=== PATIENT | female | born 1950 | race Caucasian/White ===

== ENCOUNTER → 2023-05-28 12:40 | Outpatient (BNVA) | payer MEDICARE, SELFPAY | PROVIDERS: PCP Nurse Practitioner; Referring Provider Nurse Practitioner; Visit Provider Internal Medicine Pulmonary Disease | DX: F17.210 Nicotine dependence, cigarettes, uncomplicated (principal); R91.8 Other nonspecific abnormal finding of lung field; J43.2 Centrilobular emphysema | CPT/HCPCS: 99204 ==

== ENCOUNTER 2023-06-03 07:51 | Outpatient (CLI) | payer MEDICARE, SELFPAY ==
--- NOTE | 2023-06-03 08:00 | CT_ITS ---
WS: [id number] CT CHEST TECHNIQUE: Noncontrast CT of the chest with coronal and sagittal reformatted images. CLINICAL INFORMATION: Mass of left lung COMPARISON: None. DLP: [facility] use at least one of these dose optimization techniques: automated e xposure control; mA and/or kV adjustment per patient size (includes targeted exams where dose is matc hed to clinical indication); or iterative reconstruction. FINDINGS: Suspicious spiculated mass outer RIGHT breast measuring 2.3 x 2.8 cm. Recommend further evaluation wi diagnostic mammography and ultrasound. No mammogram comparisons. Neoplasm not excluded. LEFT upper lobe irregular mass compatible with neoplasm measuring approximately 3.5 x 3.1 cm. No axil joel lymphadenopathy. Enlarged heterogeneous thyroid. Normal caliber thoracic aorta. Aortic calcifica tion. Coronary calcification. No mediastinal lymphadenopathy. Cholecystectomy. Adrenal glands are normal. RIGHT upper pole renal cyst measuring 2.6 cm. Normal GE j unction. Dense calcification in the upper abdominal aorta.Partially visualized lobulated spleen indet erminate on this noncontrast study. IMPRESSION: 1. Suspicious spiculated RIGHT outer breast mass measuring 2.3 x 2.8 cm. Recommend further evaluatio n with RIGHT diagnostic mammography and ultrasound. No comparisons. Neoplasm not excluded. 2. Heterogeneous enlarged thyroid. Recommend further evaluation with thyroid ultrasound. 3. Spiculated irregular mass LEFT upper lobe suspicious for neoplasm measuring 3.1 x 3.5 cm. 4. No mediastinal or axillary lymphadenopathy. 5. Aortic calcification. Coronary calcification. 6. Partially visualized lobulated spleen indeterminate on this noncontrast study. Recommend contrast -enhanced CT abdomen pelvis.
== END 2023-06-03 07:52 | disposition home or self-care (01) ==
LOC: RAD 07:52
PROVIDERS: PCP Nurse Practitioner; Visit Provider Internal Medicine Pulmonary Disease
DX: R91.8 Other nonspecific abnormal finding of lung field (principal); N63.10 Unspecified lump in the right breast, unspecified quadrant
CPT/HCPCS: 71250

== ENCOUNTER → 2023-06-04 08:56 | Outpatient (BNVA) | payer MEDICARE, SELFPAY | PROVIDERS: PCP Nurse Practitioner; Visit Provider Internal Medicine Pulmonary Disease | DX: R91.8 Other nonspecific abnormal finding of lung field (principal); E11.9 Type 2 diabetes mellitus without complications; E04.9 Nontoxic goiter, unspecified | CPT/HCPCS: 80053; 80061; 82043; 82607; 83036; 84443; 85025; 86800 ==

== ENCOUNTER 2023-06-10 05:43 | Day surgery (SDC) | payer MEDICARE, SELFPAY ==
[2023-06-10] VITALS (13 sets, daily range): BP systolic 127–156; BP diastolic 52–91; PULSE 73–85; RESP 14–23; TEMP 36.3–36.6; O2SAT 88–98; BMI 35.2
[2023-06-10] MEDS: sodium chloride 0.9% 1,000 ML 30 ML IV (06:18)
[2023-06-10 06:23] LABS: Glucose Point of Care 128 mg/dL (70-110)
--- NOTE | 2023-06-10 06:43 | ANES.PREANE2 ---
Pre-Anesthetic Assessment Height/Weight: Height 1.7 m Weight 102.058 kg Temp Pulse Resp BP Pulse Ox O2 Del Method 97.4 F L 73 20 H 156/90 96 Room Air 06/10/23 06:05 06/10/23 06:05 06/10/23 06:05 06/10/23 06:05 06/10/23 06:05 06/10/23 06:05 Operation Date: 06/10/23 07:00 Proposed Procedures p ION, EBUS, 06216, 43090, 03416, 16112, 31866, 05720, 89042, 56947, 69431, 07144, 34241, 67091, 25687, R91.8(Not Applicable) - Izaiah Love MD s Ebus(Not Applicable) - Izaiah HindsrMD Familial anesthetic complications: None Was Beta Justine taken within 24 hours: N/A Was Clonidine taken within 24 hours: N/A Last intake: Intake Last Liquid Date 06/09/23 Last Liquid Time 22:00 Last Solid Date 06/09/23 Last Solid Time 19:00 Social Tobacco and No alcohol encouaged smoking cessation and f/u w/ PCP for further guidance Exam alert, oriented x 3, clear to auscultation bilaterally (coarse breath sounds b/l) and regular rate & rhythm Airway Mallampati: Class III Dentition: false Pulmonary Chronic Obstructive Pulmonary Disease CV/HEM Hypertension GI Gastroesophageal Reflux Disease Metabolic Diabetes Mellitus and Hyperlipidemia Anesthetic Plan ASA status: 3 Anesthesia: General Risk of > 500 ml blood loss (7ml/kg in children): No Medications/Allergies Home Medications Medication Instructions Recorded Confirmed Last Taken Type albuterol sulfate 90 mcg/actuation 2 puff inhalation Q6H PRN 04/08/23 06/10/23 06/10/23 History aerosol inhaler Shortness Of Breath Or Wheezing amlodipine 10 mg tablet 10 mg PO DAILY 04/08/23 06/10/23 06/09/23 History aspirin 81 mg tablet,delayed 81 mg PO DAILY 04/08/23 06/06/23 06/06/23 History release (Adult Aspirin Regimen) atorvastatin 40 mg tablet 40 mg PO DAILY 04/08/23 06/10/23 06/09/23 History fluticasone 500 mcg-salmeterol 50 1 inh inhalation BID 04/08/23 06/10/23 06/10/23 History mcg/dose blistr powdr for inhalation (Wixela Inhub) ipratropium 0.5 mg-albuterol 3 mg 3 ml inhalation Q4H PRN Shortness 04/08/23 06/10/23 06/10/23 History (2.5 mg base)/3 mL nebulization Of Breath Or Wheezing soln lorazepam 1 mg tablet 1 mg PO DAILY 04/08/23 06/10/23 06/10/23 History losartan 100 mg tablet 100 mg PO DAILY 04/08/23 06/10/23 06/09/23 History metformin 750 mg tablet,extended 750 mg PO DAILY 04/08/23 06/10/23 06/08/23 History release 24 hr montelukast 10 mg tablet 10 mg PO DAILY 04/08/23 06/10/23 06/09/23 History omeprazole 40 mg capsule,delayed 40 mg PO DAILY 04/08/23 06/10/23 06/09/23 History release paroxetine HCl 40 mg tablet 40 mg PO DAILY 04/08/23 06/10/23 06/09/23 History furosemide 20 mg tablet 20 mg PO DAILY PRN Edema 05/28/23 06/10/23 06/09/23 History tiotropium bromide 18 mcg capsule 1 cap inhalation DAILY #60 05/28/23 06/10/23 06/10/23 Rx with inhalation device (Spiriva inhalations with HandiHaler) Allergies Allergy/AdvReac Type Severity Reaction Status Date / Time No Known Allergies Allergy Verified 05/28/23 13:36 Current Medications Generic Name Dose Route Start Last Admin Trade Name Freq PRN Reason Stop Dose Admin Sodium Chloride 1,000 mls @ 30 mls/hr 06/10/23 06:00 06/10/23 06:18 Sodium Chloride 0.9% IV 06/11/23 05:59 30 mls/hr .Q24H FLAVIO Administration PFSH Anesthesia Medical History (Updated 05/31/23 @ 19:03 by Izaiah Love MD) Cigarette smoker Mild acid reflux Mass of left lung 3.2x2.5cm upper lobe Environmental and seasonal allergies Anxiety with depression Essential hypertension Controlled type 2 diabetes mellitus COPD (chronic obstructive pulmonary disease) with emphysema Surgical History History of colonoscopy with polypectomy 2018 History of tonsillectomy History of cholecystectomy Open History of bladder surgery suspension History of cataract surgery both eyes History of hysterectomy with bilateral oophorectomy Due to uterine cancer with radiation vaginal 2016 History of carpal tunnel surgery both wrist Family History Other Cancer Diabetes Heart disease Hypertension Stroke Denies family history of Migraines Social History Smoking and tobacco/nicotine status: light tobacco/nicotine user cigarettes Packs smoked per day: 1.5 Years cigarettes smoked: 56 [ Other cigarette details: Started at 19] Second hand smoke exposure: No Alcohol intake: unknown Substance/Drug Use: unknown Adopted: No Caregiver/support person: No Lives independently: Yes Household members: family Housing: House Marital status: / Number of children: 1 service: No Current occupational status: retired Current occupational exposures/hazards: No Pets and animals: Yes Pets & animals: cat(s) and dog(s) Do you think of yourself as: Straight/Heterosexual Current gender identity: Female Data Anesthesia Cardiac Studies: No Data to Display
--- NOTE | 2023-06-10 06:55 | SC_ITS ---
WS: [id number] INTRAOPERATIVE TECHNIQUE: 3 Spot fluoroscopic images for intraoperative purposes. FLUOROSCOPY TIME: 51.2 seconds CLINICAL INFORMATION: ion FINDINGS: No visualized pneumothorax in the partially visualized LEFT lung. IMPRESSION: Images obtained for intraoperative purposes.
--- NOTE | 2023-06-10 07:14 | W.PM.OPSUD ---
Surgery/Procedure H&P Update DATE OF PROCEDURE: June 10, 2023 DATE H&P PERFORMED: 05/28/23 H&P UPDATE INFORMATION: I have reviewed H&P completed within last 30 days, I have examined patient prior to procedure and No changes to prior documentation PREOP DIAGNOSIS: suspected malignancy PRIMARY INDICATION FOR PROCEDURE: LEFT upper lobe irregular mass compatible with neoplasm measuring approximately 3.5 x 3.1 cm. PLANNED PROCEDURE: Operation Date: 06/10/23 07:00 Proposed Procedures p ION, EBUS, 96253, 11806, 55898, 93053, 71103, 68422, 27404, 35904, 92929, 93069, 61622, 58670, 31469, R91.8(Not Applicable) - Izaiah Love MD s Ebus(Not Applicable) - Izaiah Love MD
[2023-06-10] MEDS: lidocaine 1% INJ 10 mL (per mL) XX (07:46)
[2023-06-10 09:17] LABS: Cyto Order Verification Order Verified
--- NOTE | 2023-06-10 09:25 | XRR_ITS ---
PROCEDURE INFORMATION: Exam: XR Chest Exam date and time: 06/10/2023 8:42 AM Age: 73 years old Clinical indication: Device placement; Other: Post bronch; Prior surgery; Surgery date: Post-operative (0-2 days); Additional info: Post ion TECHNIQUE: Imaging protocol: Radiologic exam of the chest. Views: 1 view. COMPARISON: CT chest ION (PULM ONLY) [id number] 06/03/2023 8:00 AM FINDINGS: Lungs: Unchanged left upper lobe mass. Otherwise, unremarkable. Pleural spaces: Unremarkable. No pleural effusion. No pneumothorax. Heart/Mediastinum: Unremarkable. No cardiomegaly. Diaphragm: Unchanged mild elevation of the right hemidiaphragm. Bones/joints: Unremarkable. XR/XR chest 1V portable [id number] IMPRESSION: 1. No pneumothorax post bronchoscopy. 2. Additional details as above.
--- NOTE | 2023-06-10 09:50 | P.OP_ITS ---
Operative Report Date of procedure: June 10, 2023 Pre-op diagnosis: Suspected malignancy Post-op diagnosis: Suspected malignancy Procedure done: -Dx Bronchoscope w/Washings or airway inspection -Dx Bronchoscope w/BAL -Bronch with computer image guided Navigational Bronchoscopy -Bronchoscopy w/Transbronchial lung biopsy(s), single lobe using forceps -Bronchoscopy w/Transbronchial needle aspiration biopsy(s), tracheal, main stem, and/or lobar bronchus -Bronchoscopy w/ therapeutic aspiration of the tracheobronchial tree (clearance of airway secretions, removal of mucus plugs) -EBUS Sampling > 3 lymph nodes Surgeon: Izaiah Love MD Brief History: Ms. Karely Virgen is a 73-year-old female with past medical history of diabetes, hypertension, cigarette smoker referred by Ms. Erickson for abnormal finding of lung. Patient reported smoking 12-13 cigarettes per day with hx of 1.5 ppd X 56 years. she has history of endometrial cancer in 2015 - s/p hyseterectomy and has 5 sessions of radiation and No lymph node involvement as per pt. Currently she uses Wixela BID and does not use albuterol regularly. She lived in [place] for 65 years - moved to [place] 2020 - and goes to [place] every 6 months as she gets medications from there. she has been having URTI and had a chest x ray in [place] and found to have suspicious lesion; she had CT chest and subsequest PET Ct in mar 2023 - all showed left upper lobe mass 3.2 X 2.5 cm with SUV 14; I have the reports but we do not have any images. She has seen a and rescue fire fighter crash fire in [place] who recommended biopsies-and hence she comes today to discuss about obtaining biopsies. Today she is scheduled for navigational bronchoscopy guided biopsies of left upper lobe mass as well as endobronchial ultrasound-guided biopsy of hilar/mediastinal lymph nodes. Procedure: ROBOTIC BRONCHOSCOPY NOTE: Pre-procedure Verification: Prior to the procedure, the patient's identity was verified by full name, date of and medical record number. The patient's identity was verified on all pertinent medical records. Also prior to the procedure, a History and Physical was performed, and patient medications, allergies and sensitivities were reviewed. The patient's tolerance of previous anesthesia was reviewed. The risks and benefits of the procedure and the sedation options and risks were discussed with the patient. All questions were answered and informed consent was obtained. Planning: Using the Planpoint planning software, this patient?s preoperative CT was loaded onto the system and then target and pathway mapping was performed. This was all done prior to the start of the procedure and appropriate plan verified prior to induction. Anesthesia: General anesthesia was used. Please see anesthesiology documentation for full details. A modified LNVP/[place] Protocol was used for robotic bronchoscopy with rapid Intubation, recruitment maneuvers, Tidal Volume around 8-10mL/Kg [place] Body Weight, and PEEP 10-15 as feasible. Time-Out: Prior to the start of the procedure, the patient's identification, proposed procedure, accurate signed consent, correctly labeled images and record s, and need for prophylactic antibiotics were verified by the physician, the nurse, the anesthesiologist and the it solutions sales consultant in the procedure room. Procedural Details: After obtaining informed consent, The procedure was accomplished without difficulty. The patient tolerated the procedure well. Patient preparation: Patient was placed under general anesthesia. An 8.5 ETT was placed for bronchoscopy. The larynx and vocal cords were not visualized. The trachea was anatomically normal The right sided airway was anatomically normal without endobronchial lesions. thin slightly mucoid appearing secretions. The left sided airway was anatomically normal without endobronchial lesions. thin slightly mucoid appearing secretions. Therapeutic aspiration of the airways, initial encounter, was performed at the left bronchial tree. The therapeutic bronchoscope was then removed. We communicated with the anesthesia team to ensure proper ventilator settings for optimal peripheral bronchoscopy. FIRST LOBE: The Ion Shape Sensing Robotic Assisted Bronchoscope was brought into the field and the process of registration was carried out. The guide catheter was used for peripheral navigational bronchoscopy using the planned pathway into the left upper lobe apical segment mass and was able to be wedged peripherally at a distance of 8 mm away from the target. We locked the catheter position in, and removed the vision probe. We introduced the radial EBUS probe and obtained an good concentric signal [id number] image location relative to the lesion in the same lobe. We confirmed our location with a fluoroscopic C-arm. We then removed the R-EBUS and introduced the biopsy tools starting with a 21 G ION bronchoscopic peripheral needle for Transbronchial Needle Aspirations (TBNA). The first pass was not sent for Rapid On Site Evaluation (PEPE) as we do not have onsite pathology. We continued more biopsies in a cloud format. Transbronchial biopsies of left upper lobe apical segment mass were made using forceps. Transbronchial biopsy technique was selected because the sampling site was not visible endoscopically. The sampling device penetrated the full thickness of the bronchial wall to obtain the biopsy of lung tissue. 6 biopsy passes were performed, and the same number of biopsy samples were obtained. Finally, we used a 20 cc syringe filled with normal saline connected to the proximal portion of the ION catheter and slowly injected and aspirated the contents for a bronchial alveolar lavage of the left upper lobe. The return was cloudy and blood tinged 13 cc . At this point and after confirming the absence of bleeding, we removed the channel. Minimal blood residue was cleared from the airway and the peripheral navigation portion of the procedure was concluded. Empiric cold saline was instilled through the catheter and tamponade held for 1-5 minutes. Next, we turned our attention to linear EBUS staging. An EBUS exam was performed: - Stations 11 R, station 7, station 11 L were enlarged > 5mm and sampled. - Stations 10L, 4L, 10 R, and were also scanned but no obvious lymph nodes were identified and thus did not meet criteria for sampling. Level 11R station was identified with the EBUS scope at the RBI/R hilum and 3 passes were made using a 21G Olympus TBNA needle. Level 7 station was identified with the EBUS scope at the medial LMSB/RMSB and 4 passes were made using a 21 G Olympus TBNA needle. Level 11L station was identified with the EBUS scope at the LLL/L hilum and 3 passes were made using a 21G Olympus TBNA needle. Rapid onsite path evaluation (PEPE) was not utilized for this case. Following completion of all diagnostic and therapeutic procedures, hemostasis was verified. The scope was removed and procedure concluded. Samples: A. Left upper lobe mass 1. Total of 6 passes were made using needle aspiration ; we do not have onsite pathology and so all the material was placed in formalin for histopathology 2. Targeting the same area 6 passes were made using forceps ; we do not have onsite pathology and so all the material was placed in formalin for histopathology 3. Bronchoscope was wedged at the entrance of the apical segment of left upper lobe, 20 mL of saline was instilled and returned 13 mL of bronchoalveolar lavage . The fluid was mixed with blood and specks of tissue. Samples for cell count, cytology, cultures B. EBUS guided Fine-needle aspiration biopsies were taken from Stations 11 R, station 7, 11 L 5. Total of 3 passes were made using needle aspiration from station 11 R; all the material was placed in formalin and sent for histopathology 6. Total of 3 passes were made using needle aspiration from station 7; all the material was placed in formalin and sent for histopathology 7. Total of 3 passes were made using needle aspiration from station 11 L; all the material was placed in formalin and sent for histopathology Complications: None.The patient was extubated and brought to the PACU in stable condition. Postprocedure chest x-ray: There is no evidence of pneumothorax Disposition: Patient can be discharged home in stable condition. Pt, and family are aware that I am going to call them to update final biopsy results once available.
--- NOTE | 2023-06-10 10:35 | ANE.PACU2 ---
Inpatient post-anesthesia follow up: Airway intact: Yes Vital signs: Temperature 97.7 F Pulse Rate 73 Respiratory Rate 16 Blood Pressure 135/61 Pulse Oximetry 92 Oxygen Delivery Me thod Room Air Oxygen Flow Rate 2 Fraction of Inspir ed Oxygen Hydration adequate: Yes Nausea and vomiting: No Pain level: 1 Mental status: Baseline
[2023-06-14 10:35] LABS: PD-L1 (Clone 22C3) by IHC BBPL See Report
== END 2023-06-10 10:34 | disposition home or self-care (01) ==
PROVIDERS: PCP Nurse Practitioner; Visit Provider Internal Medicine Pulmonary Disease
PROC: 0BJ08ZZ Inspection of Tracheobronchial Tree, Via Natural or Artificial Opening Endoscopic (ICD-10-PCS; CPT 31622; principal; 2023-06-10 07:00)
PROC: BB4BZZZ Ultrasonography of Pleura (ICD-10-PCS; 2023-06-10 07:00)
DX: C34.12 Malignant neoplasm of upper lobe, left bronchus or lung (principal); J44.9 Chronic obstructive pulmonary disease, unspecified; I10 Essential (primary) hypertension; K21.9 Gastro-esophageal reflux disease without esophagitis; E11.9 Type 2 diabetes mellitus without complications; E78.5 Hyperlipidemia, unspecified; Z79.82 Long term (current) use of aspirin; F17.210 Nicotine dependence, cigarettes, uncomplicated
CPT/HCPCS: 31624; 31627; 31628; 31629; 31653; 36416; 71045; 76000; 82962; 87015; 87070; 87102; 87116; 87205; 87206; 87801; 88112; 88305; 88341; 88342; 89050; J0360; J1100; J2250; J2405; J2704; J2710; J3010; J3490; J7030

== ENCOUNTER 2023-06-13 06:53 | Outpatient (CLI) | payer MEDICARE, SELFPAY ==
[2023-06-13 07:38] VITALS: PULSE 83; RESP 18; O2SAT 95
[2023-06-13] MEDS: albuterol 2.5 mg/3 mL Neb INHALATION (07:38)
[2023-06-13 07:43] VITALS: PULSE 78
== END 2023-06-13 06:54 | disposition home or self-care (01) ==
LOC: RT 06:54
PROVIDERS: PCP Nurse Practitioner; Visit Provider Internal Medicine Pulmonary Disease
DX: F17.210 Nicotine dependence, cigarettes, uncomplicated (principal)
CPT/HCPCS: 94060; 94618; 94726; 94729

== ENCOUNTER 2023-06-18 14:07 | Oncology outpatient (recurring) (ONCR) | payer MEDICARE, SELFPAY ==
--- NOTE | 2023-06-19 08:09 | N.ONRAD NP_ITS ---
Radiation Oncology New Patient Visit Patient: Karely Virgen MR#: [id number] : 1950 Age: 73 Sex: Female Dictated by: Ankush Morin M.D. Date of Service: 06/18/2023 Referring Physician(s) : Herson Frost M.D. Diagnosis: C34.12 - malignant neoplasm of upper lobe, left bronchus or lung, Diagnosed 06/10/2023 (active). Radiotherapy to date: Summary No prior radiation therapy. 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 She has incidentally noted new diagnosis of clinical st II(T2 N0 M0) breast carcinoma of the central right breast noted on CT from 06/03/2023. In January 2023 she admitted found on chest x-ray to have left lung mass. At the time she was in [place]. She had further evaluation there with chest CT and subsequently with PET/CT. The PET/CT was done at [facility] on 03/05/2023. It showed an FDG avid left upper lobe lung mass measuring 3.2 x 2.5 cm, SUV max 14. Also noted was diffusely FDG avid thyroid gland consistent with thyroiditis or thyroid disease. Focal uptake in the upper rectum was felt to be most likely physiologic. There was evidence for focal chronic dissection or penetrating ulcer in the distal aorta. There was no evidence, though, of regional or distant metastatic disease.She had subsequently returned to [place], and she was seen here by Dr. Love on 05/28/2023. Chest CT on 06/03/2023 showed a 3.5 x 3.1 cm irregular mass in the left upper lobe compatible with neoplasm. There is no mediastinal or axillary adenopathy noted. There was evidence of enlarged heterogeneous thyroid. Also noted was a spiculated mass in the outer right breast measuring 2.3 x 2.8 cm.On 06/10/2023 she underwent navigational bronchoscopy/EBUS. There were no endobronchial lesions identified. Biopsies were obtained from the left upper lobe mass. EBUS identified lymph nodes larger than 5 mm at stations 11R, 7, and 11L, and FNA biopsies were obtained at all 3 locations. Pathology on the left upper lobe mass showed moderately differentiated invasive squamous cell carcinoma. The tumor was negative for PD-L1 clone 22C3 expression, TPS <1%. The FNA biopsies were negative for malignancy, though the station 7 lymph node showed a single, minuscule fragment of atypical squamous tissue which showed features which were worrisome for involvement by squamous cell carcinoma.Her pulmonary function studies on 06/13/2023 showed an FEV1 of 1.63, 68% of predicted.She is seen for further management. She complains that she has been feeling very tired, and her activity is limited. Her ECOG score is 2. Her appetite is still good. Her weight has fluctuated, but it appears overall stable. She had a slight fever after the bronchoscopy. She has not had hot flashes or night sweating. She has some chronic sinus drainage. She has some hoarseness, which she attributes to dryness. She does cough a lot. She gets out of breath very easily. She sometimes has pain in her chest with the coughing. She has not had any hemoptysis. Recently she has had some nausea, and she also complains of acid indigestion. Her bowel function is inconsistent, but that is chronic. She has no complaints other than she gets up twice at night to void. She has arthritis in her knees and in her cervical spine, and she also has a little arthritis in her hands. She has been having headache pretty frequently and over the past 6 months her balance has been getting worse. She also has been developing tremor. She has no numbness/paresthesia or other focal neurologic symptoms. She has stress related anxiety. She has had depression in the past. He cough was transiently worse post bronch now back to old baseline. Smoked from 19 to current time up to 2 ppd. Currently 1 ppd. Previously worked in office work and food services. One daughter here who is with her. Current Medications: albuterol sulfate 90 mcg/actuation 2 puffs inhalation Q6H PRNamlodipine 10 mg PO DAILYaspirin (Adult Aspirin Regimen) 81 mg PO DAILYatorvastatin 40 mg PO DAILYfluticasone propion-salmeterol 500-50 mcg/dose (Wixela Inhub) 1 inh inhalation BIDfurosemide 20 mg PO DAILY PRNipratropium-albuterol 0.5 mg-3 mg(2.5 mg base)/3 mL 3 mL inhalation Q4H PRNlorazepam 1 mg PO DAILYlosartan 100 mg PO DAILYmetformin ER 750 mg PO DAILYmontelukast 10 mg PO DAILYomeprazole 40 mg PO DAILYparoxetine HCl 40 mg PO DAILYtiotropium bromide (Spiriva with HandiHaler) 1 cap inhalation DAILY Allergies: No Known Drug Allergies Medical History: No history of collagen vascular disease. No previous radiation therapy. History of endometrial cancerHyperlipidemiaCigarette smokerMild acid refluxEnvironmental and seasonal allergiesAnxiety with depressionEssential hypertensionControlled type 2 diabetes mellitusCOPD (chronic obstructive pulmonary disease) with emphysema Surgical History: History of colonoscopy with polypectomy 2018 History of tonsillectomyHistory of cholecystectomyOpen History of bladder surgerysuspension History of cataract surgeryboth eyes History of hysterectomy with bilateral oophorectomyDue to uterine cancer with radiation vaginal 2016 History of carpal tunnel surgeryboth wrist Family History: Father Cerebral vein occlusion Brother Colon cancer Other Cancer Diabetes Heart disease Hypertension Stroke Denies family history of Migraines Social History: Moved here from [place] 2 years ago. 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 She is 04/16 [facility] [place] and has been cared for in the [facility] [place]. Smoking and tobacco/nicotine status: current every day tobacco/nicotine user Second hand smoke exposure: No Alcohol intake: current Alcohol intake frequency: holidays/special occasions only Substance/Drug Use: unknown Adopted: No Caregiver/support person: No Lives independently: Yes Household members: family Housing: House Marital status: / Number of children: 1 service: No Current occupational status: retired Current occupational exposures/hazards: No Pets and animals: Yes Pets & animals: cat(s) and dog(s) Do you think of yourself as: Straight/Heterosexual Current gender identity: Female Current Complaints / Review of Systems: . Vital Signs: Performed on 06/18/2023 2:09 PM BMI - 35.992 kg/m2 (high), Height - 67 in, Weight - 229.8 lbs, Temperature - 97.3 f, Pulse - 79 /min, Respiration - 16 /min, O2 Sat - 96 %, Pain - 0, Fatigue - 6 and BP - 151/ 67 mm(hg)(high/). Physical Exam: Pleasant alert in NAD. No adenopathy. Lungs clear Heart regular Breast exam omitted No pedal edema or clubbing No focal neuro deficits. Performance Status: ECOG 0 Pathology: See HPI Imaging: See HPI Impression: ST IB(T2 N0 M0) squamous cell carcinoma of left lung. Equivocal aht from sampled lymph node on EBUS. She prefers non surgical treatment. Need restaging PET/CT. If disease confined to left lung then definitive SBRT is reasonable. Clinical stage II(T2 N0 M0) breast carcinoma. Need MMG and U/S with biopsy. She is a candidate for lumpectomy sentinel LN sampling and post op radiation anticipating this is a separate primary diagnosis. Discussed with patient, daughter and Dr. Frost. Plan: Signed by: 06/19/2023 8:08:43 AM <<Signature on File>> Time spent with patient: CPT Code: CPT Code:
== END 2023-06-30 23:59 | disposition home or self-care (01) ==
PROVIDERS: PCP Nurse Practitioner; Visit Provider Internal Medicine Pulmonary Disease
DX: C34.12 Malignant neoplasm of upper lobe, left bronchus or lung (principal); F17.210 Nicotine dependence, cigarettes, uncomplicated; C50.111 Malignant neoplasm of central portion of right female breast
CPT/HCPCS: 77300; 77301; 77334; 77338; 77470; 99205

== ENCOUNTER 2023-06-20 06:36 | Outpatient (CLI) | payer MEDICARE, SELFPAY ==
--- NOTE | 2023-06-20 06:45 | USR_ITS ---
PROCEDURE INFORMATION: Exam: US Soft Tissue Head and Neck, Thyroid Exam date and time: 06/20/2023 6:44 AM Age: 73 years old Clinical indication: Abnormal heterogeneous thyroid gland on recent CT exam. Goiter; Additional info: E04.9 - nontoxic goiter, unspecified TECHNIQUE: Imaging protocol: Real-time ultrasound scan of the neck with image documentation. Exam focused on the thyroid. COMPARISON: CT chest ION (PULM ONLY) [id number] 06/03/2023 8:00 AM FINDINGS: Right Lobe: Overall dimensions 3.8 x 1.8 x 2.1 cm. Diffusely heterogeneous. A hypoechoic nodule towards the lower pole measures 9 x 8 x 10 mm, TI-RADS 3. Left Lobe: Overall dimensions 4.9 x 2.8 x 2.6 cm. Diffusely heterogeneous. Isthmus: Measures 10 mm AP width. US/US thyroid [id number] IMPRESSION: Enlarged and diffusely heterogeneous thyroid gland compatible with goiter.
== END 2023-06-20 06:37 | disposition home or self-care (01) ==
LOC: RAD 06:36
PROVIDERS: PCP Nurse Practitioner; Visit Provider Nurse Practitioner
DX: E04.9 Nontoxic goiter, unspecified (principal)
CPT/HCPCS: 76536

== ENCOUNTER 2023-07-02 08:35 | Outpatient (CLI) | payer MEDICARE, SELFPAY ==
--- NOTE | 2023-07-02 09:00 | PETR_ITS ---
PROCEDURE INFORMATION: Exam: PET/CT Skull Base to Mid-thigh Exam date and time: 07/02/2023 9:39 AM Age: 73 years old Clinical indication: Condition or disease; Primary cancer: Left lung, right breast; Initial oncological staging assessment; Additional info: Previous history of endometrial cancer. LABS AND CLINICAL REPORTS: Glucose: 167 mg/dl Treatment strategy for malignancy (PET staging): Initial Staging (PI) TECHNIQUE: Imaging protocol: Following at least four-hour fasting and following the injection of radiopharmaceutical, low dose CT images were obtained. Then, PET images were obtained. Attenuation corrected images were constructed using the CT scan. Fused images of PET and CT were reviewed. The standardized uptake values (SUV) reported below are maximum values within a region of interest, expressed in gm/ml. Exam includes orbital meatal line to mid-thigh. Radiopharmaceutical: 12.6 mCi F-18 FDG (Fluorodeoxyglucose), IV. Time of imaging post radiopharmaceutical administration: 1 hour Injection site: Left antecubital vein COMPARISON: PT PET Scan 03/05/2023 2:26 PM FINDINGS: Brain: Visualized brain has normal physiologic uptake. Pharynx: No abnormal uptake. Larynx: No abnormal uptake. Thyroid: Persistent diffusely increased uptake currently measuring 5 SUV, previously 8.8 SUV) suggestive of thyroiditis. Lungs, pleura and trachea: The left upper lobe mass measures 3.9 x 3.1 cm/11.6 SUV, previously 3.3 x 2.6 cm/13.8 SUV. No pleural effusion. Heart: Normal physiologic uptake. There is no cardiomegaly. Coronary artery calcification is present. There is no pericardial effusion. Mediastinal space: No abnormal uptake. Liver: No abnormal uptake. Gallbladder and bile ducts: No abnormal uptake. Status post cholecystectomy. Pancreas: No abnormal uptake. Spleen: No abnormal uptake. No splenomegaly. Adrenal glands: No abnormal uptake. No nodules. Kidneys and ureters: Normal physiologic uptake. No hydronephrosis. Stable 2.8 cm simple cyst in the upper pole of the right kidney. Stomach and bowel: Increased uptake in the cecum and ascending colon with no corresponding CT abnormality is probably benign. No abnormal dilatation of the bowel. Intraperitoneal and retroperitoneal spaces: No abnormal uptake. No ascites. Bladder: Normal physiologic uptake. Reproductive: No abnormal uptake. The uterus is absent post surgically. Vasculature: No abnormal uptake. No aortic aneurysm. Lymph nodes: No abnormal uptake. No lymphadenopathy in the head, neck, chest, abdomen, pelvis, and extremities. Bones/joints: No abnormal uptake in the visualized axial and appendicular skeleton. Soft tissues: No abnormal uptake in the visualized head, neck, chest, abdomen, pelvis, and extremities. Specifically, there is no abnormal uptake in the right breast in the area of soft tissue density in the upper outer quadrant probably representing glandular tissue. PET/PET skulltothigh INITIAL [id number] IMPRESSION: Persistent FDG avid lung mass in the left upper lobe currently measures 3.9 cm/11.6 SUV, previously 3.3 cm/13.8 SUV. No FDG avid lymphadenopathy in the chest, no evidence of distant FDG avid metastatic disease. No abnormal uptake in the right breast. Persistent diffusely increased uptake in the thyroid suggestive of thyroiditis.
== END 2023-07-02 08:36 | disposition home or self-care (01) ==
LOC: RAD 08:36
PROVIDERS: PCP Nurse Practitioner; Visit Provider Radiology Radiation Oncology
DX: C34.90 Malignant neoplasm of unspecified part of unspecified bronchus or lung (principal)
CPT/HCPCS: 78815; A9552

== ENCOUNTER 2023-07-03 14:03 | Outpatient (CLI) | payer MEDICARE, SELFPAY ==
[2023-07-03] MEDS: iohexol 300 mg/mL 100 mL Btl PO (14:50)
[2023-07-03] MEDS: iohexol 350 mg/mL 500 mL Btl (per mL) IV (15:16)
--- NOTE | 2023-07-03 15:45 | CT_ITS ---
WS: [id number] CT ABDOMEN AND PELVIS WITH CONTRAST HISTORY: R91.8 - Other nonspecific abnormal finding of lung field TECHNIQUE: Imaging performed of the abdomen and pelvis with IV contrast. Single phase imaging of the abdomen. Coronal and sagittal reformats are submitted. All CT scans at [facility] use at [facility] one of these dose optimization techniques: automated exposure control; mA and/or kV adjustment per patient size (includes targeted exams where dose is matched to clinical indication); or iterative re construction. IV CONTRAST: Omnipaque 350; 100 mL IV. Oral contrast: Yes. DLP: 927.84 mGy.cm COMPARISON: None available. Lower thorax: Lung bases are clear. Heart is normal size. Small hiatal hernia. Liver/biliary system: Normal size with no intrahepatic dilatation. Gallbladder: Status post cholecystectomy. Pancreas: Normal size pancreas and pancreatic duct. No adjacent inflammation. Spleen: Normal size spleen. No mass or infarct. Adrenal glands: Normal. Right kidney: Normal size kidney. 2.1 cm cyst upper pole. No obstruction. Smaller cysts in the lower pole. Left kidney: There are few scattered cortical, too small to characterize hypodensities. Small parapel oumar cyst. No obstruction. Aorta: Moderate atherosclerotic plaque. Calcification in the proximal SMA and celiac axis. Component of stenosis in the SMA. Lymphadenopathy: None. Free fluid: None. GI tract: Negative stomach. No small bowel obstruction. Moderate diffuse constipation. Abdominal wall: Very small ventral abdominal wall hernia. Numerous surgical sutures are noted within the anterior abdominal wall. Pelvis: No free fluid or adenopathy within the pelvis. Prior hysterectomy. Bones: Unremarkable. IMPRESSION: 1. No acute abdominal or pelvic abnormalities. 2. Prior cholecystectomy. 3. No metastatic disease within the liver or adrenal glands. 4. RIGHT renal cyst. 5. Moderate atherosclerosis aorta and mesenteric arteries. 6. Moderate constipation.
== END 2023-07-03 14:04 | disposition home or self-care (01) ==
LOC: RAD 14:04
PROVIDERS: PCP Nurse Practitioner; Visit Provider Nurse Practitioner
DX: R91.8 Other nonspecific abnormal finding of lung field (principal); N28.1 Cyst of kidney, acquired; I70.0 Atherosclerosis of aorta; K59.00 Constipation, unspecified
CPT/HCPCS: 74177; Q9967

== ENCOUNTER 2023-07-15 09:30 | Outpatient (CLI) | payer MEDICARE, SELFPAY ==
--- NOTE | 2023-07-15 10:00 | MM_ITS ---
WS: [id number] DIAGNOSTIC BILATERAL DIGITAL BREAST TOMOSYNTHESIS MAMMOGRAPHY WITH CAD RIGHT breast ultrasound, limited. HISTORY: Possible mass seen on prior lung screening CT. Negative on PET/CT. COMPARISON: 07/02/2023, 06/03/2023 TECHNIQUE: Bilateral craniocaudad, mediolateral oblique, and mediolateral views are submitted with to mosynthesis and SM. Compression RIGHT breast. Computer aided detection utilized. Breast composition: There are scattered areas of fibroglandular density. Asymmetry in the anterior RI GHT breast. Increased fibroglandular density. There is no distortion. No mass or mass effect. Additio nal benign calcifications within each breast. RIGHT breast ultrasound: Ultrasound will be directed to the subareolar region and 9-12 o'clock. No ma ss identified. IMPRESSION: MM/[place] [id number] BI-RADS: 2-Benign FOLLOW UP: 1 Year Follow-up There is no corresponding mass within the RIGHT breast as suspected by the prio r CT. This was superimposed fibroglandular tissue.
--- NOTE | 2023-07-15 10:45 | US_ITS ---
WS: [id number] DIAGNOSTIC BILATERAL DIGITAL BREAST TOMOSYNTHESIS MAMMOGRAPHY WITH CAD RIGHT breast ultrasound, limited. HISTORY: Possible mass seen on prior lung screening CT. Negative on PET/CT. COMPARISON: 07/02/2023, 06/03/2023 TECHNIQUE: Bilateral craniocaudad, mediolateral oblique, and mediolateral views are submitted with to mosynthesis and SM. Compression RIGHT breast. Computer aided detection utilized. Breast composition: There are scattered areas of fibroglandular density. Asymmetry in the anterior RI GHT breast. Increased fibroglandular density. There is no distortion. No mass or mass effect. Additio nal benign calcifications within each breast. RIGHT breast ultrasound: Ultrasound will be directed to the subareolar region and 9-12 o'clock. No ma ss identified. IMPRESSION: US/US breast RT limited* [id number] BI-RADS: 2-Benign FOLLOW UP: 1 Year Follow-up There is no corresponding mass within the RIGHT breast as suspected by the prio r CT. This was superimposed fibroglandular tissue.
== END 2023-07-15 09:31 | disposition home or self-care (01) ==
LOC: RAD 09:31
PROVIDERS: PCP Nurse Practitioner; Visit Provider Internal Medicine Medical Oncology
DX: R93.89 Abnormal findings on diagnostic imaging of other specified body structures (principal); Z12.31 Encounter for screening mammogram for malignant neoplasm of breast
CPT/HCPCS: 76642; 77062; G0279

== ENCOUNTER 2023-07-22 09:45 | Outpatient (CLI) | payer MEDICARE, SELFPAY ==
--- NOTE | 2023-07-22 09:48 | XRR_ITS ---
PROCEDURE INFORMATION: Exam: XR Left Finger(s) Exam date and time: 07/22/2023 10:08 AM Age: 73 years old Clinical indication: Injury or trauma; Fall; Blunt trauma (contusions or hematomas); Left; Little finger; Additional info: S69.92xa - unspecified injury of left wrist, hand and fin. . . , 5th digit pip joint TECHNIQUE: Imaging protocol: Radiologic exam of the left fingers. Views: Minimum 2 views. COMPARISON: No relevant prior studies available. FINDINGS: Bones/joints: No fracture or dislocation. No acute osseous, joint, or soft tissue abnormality. Soft tissues: Normal. XR/XR finger LT min 2V [id number] IMPRESSION: No acute findings.
== END 2023-07-22 09:46 | disposition home or self-care (01) ==
LOC: RAD 09:47
PROVIDERS: PCP Nurse Practitioner; Visit Provider Nurse Practitioner Family
DX: S69.92XA Unspecified injury of left wrist, hand and finger(s), initial encounter (principal); M25.542 Pain in joints of left hand
CPT/HCPCS: 73140

== ENCOUNTER 2023-07-24 09:00 | Oncology outpatient (recurring) (ONCR) | payer MEDICARE, SELFPAY ==
--- NOTE | 2023-07-25 11:00 | N.ONRD TS_ITS ---
Radiation Oncology Treatment Summary/ Treatment Management Note Patient: Param>Karely> MR#: [id number] : 1950> Age: 73> Sex: Female Dictated by: Dr. Purvi Moore Date of Service: 07/25/2023 Referring Physician(s) : Herson Frost M.D. Diagnosis: C34.12 - Malignant neoplasm of upper lobe, left bronchus or lung, Diagnosed 06/10/2023 (Active) Radiotherapy to Date: Course: DOUGLAS SBRT 2023,Treatment Site: DOUGLAS SBRT 2023, Ref. ID: [id number], Energy: 6X, Dose/Fx (cGy): 1,200, #Fx: 4 / 4, Dose Correction (cGy): 0, Total Dose Delivered (cGy): 4,800, Start Date: 07/22/2023, End Date: 07/25/2023, Elapsed Days: 3 Clinical Summary: The patient tolerated RT well. Patient had noticed no changes during the course of her treatment. She has continued to have postnasal drip and some coughing related to this. On exam today her lungs were clear. Plan: End of treatment today. Continue on the above medication until the skin reaction resolves. Follow up in one month. Signed by: Dr. Purvi Moore>07/25/2023 10:58:51 AM <<Signature on File>>
== END 2023-07-24 23:59 | disposition home or self-care (01) ==
PROVIDERS: PCP Nurse Practitioner; Visit Provider Radiology Radiation Oncology
DX: Z51.0 Encounter for antineoplastic radiation therapy (principal); C34.12 Malignant neoplasm of upper lobe, left bronchus or lung
CPT/HCPCS: 77300; 77301; 77334; 77336; 77338; 77373; 77470; 99024

== ENCOUNTER 2023-07-25 08:53 | Oncology outpatient (recurring) (ONCR) | payer MEDICARE, SELFPAY ==
--- NOTE | 2023-08-27 15:15 | ONCRAD EPV_ITS ---
Radiation Oncology Established Patient Visit Patient: Karley Virgen [id number] : 1950 Age: 73 Sex: Female Dictated by: Dr. Purvi Moore Date of Service: 08/27/2023 Referring Physician(s) : Herson Frost M.D. Diagnosis: C34.12 - Malignant neoplasm of upper lobe, left bronchus or lung, Diagnosed 06/10/2023 (Active) Radiotherapy to Date: Course: DOUGLAS SBRT 2023, Treatment Site: DOUGLAS SBRT 2023 Ref. ID: [id number], Energy: 6X, Dose/Fx (cGy): 1,200, #Fx: 4 / 4, Dose Correction (cGy): 0, Total Dose Delivered (cGy): 4,800, Start Date: 07/22/2023, End Date: 07/25/2023, Elapsed Days: 3 Current History: Patient dropped in today unscheduled as she just visit with Dr. Love. He will be following her as he is leaving the area. She wanted to make sure that we were going to schedule her follow-up scans. Current Medications: Allergies: Current Complaints / Review of Systems: . Vital Signs: Performed on 08/27/2023 2:52 PM BMI - 35.961 kg/m2 (high), Height - 67 in, Weight - 229.6 lbs, Temperature - 97.1 f, Pulse - 73 /min, Respiration - 18 /min, O2 Sat - 96 %, Pain - 0, Fatigue - 4 and BP - 128/ 71 mm(hg). Physical Exam: General: Alert and oriented x 3. No acute distress. HEENT: Normocephalic atraumatic. Pupils are equal, sclera clear, extraocular muscles intact Pulmonary: Respiratory rate is regular nonlabored Cardiovascular: Regular rate and rhythm Abdomen: Moderately protuberant and android pattern Extremities: Without clubbing cyanosis or edema Neurological: Alert and orient x 3. Gait and speech within normal limits Performance Status: 100 Lab: None pending. Pathology: Primary, c34.12 - malignant neoplasm of upper lobe, left bronchus or lung, Diagnosed 06/10/2023 (active) . Imaging: See HPI Impression: Cancer of the left upper lobe status post SBRT Plan: Patient has recovered from her stereotactic treatment nicely without incident. We talked today about getting her scheduled for the scan when she returns from [place]. She will otherwise call with any problems should arise in the interim. Signed by: 08/27/2023 3:14:36 PM <<Signature on File>> Time spent with patient: CPT Code: CPT Code:
== END 2023-07-30 23:59 | disposition home or self-care (01) ==
PROVIDERS: PCP Nurse Practitioner; Visit Provider Radiology Radiation Oncology
DX: Z51.0 Encounter for antineoplastic radiation therapy (principal); C34.12 Malignant neoplasm of upper lobe, left bronchus or lung
CPT/HCPCS: 77373

== ENCOUNTER → 2023-08-27 12:52 | Outpatient (BNVA) | payer MEDICARE, SELFPAY | PROVIDERS: PCP Nurse Practitioner; Visit Provider Internal Medicine Pulmonary Disease | DX: C34.12 Malignant neoplasm of upper lobe, left bronchus or lung (principal); J43.2 Centrilobular emphysema; T78.40XA Allergy, unspecified, initial encounter; F17.210 Nicotine dependence, cigarettes, uncomplicated; J43.9 Emphysema, unspecified; J44.9 Chronic obstructive pulmonary disease, unspecified; Y99.9 Unspecified external cause status | CPT/HCPCS: 99214 ==

== ENCOUNTER 2023-08-27 14:39 | Oncology outpatient (recurring) (ONCR) | payer MEDICARE, SELFPAY | END 2023-08-30 23:59 | disposition home or self-care (01) | PROVIDERS: PCP Nurse Practitioner; Visit Provider Radiology Radiation Oncology | DX: Z53.9 Procedure and treatment not carried out, unspecified reason (principal) ==

== ENCOUNTER 2023-09-19 11:35 | Oncology outpatient (recurring) (ONCR) | payer MEDICARE, SELFPAY ==
[2023-09-19 12:08] LABS: Basophils % 0.5 %; Eosinophils # 0.1 10^3/uL (0.0-0.8); Eosinophils % 1.8 %; Hematocrit 39.3 % (36-47); Lymphocytes # 1.4 10^3/uL (0.8-4.8); Lymphocytes % 24.5 %; Mean Corpuscular HGB Conc 32.1 g/dL (30-55); Mean Corpuscular Hemoglobin 27.2 pg (27-33); Mean Corpuscular Volume 84.7 fl (85-98); Mean Platelet Volume 8.7 fL (7.4-10.4); Monocytes # 0.4 10^3/uL (0.2-0.9); Monocytes % 6.4 %; Neutrophils # 3.65 10^3/uL (1.8-7.7); Neutrophils % 66.4 %; Nucleated Red Blood Cells % 0 %; Platelet Count 270 10^3/cmm (157-399); Red Blood Count 4.64 10^6/uL (3.85-5.65); Red Cell Distribution Width 14.4 % (12.1-15.1)
[2023-09-19 12:28] LABS: Alanine Aminotransferase 13 U/L (0-33); Alkaline Phosphatase 110 U/L (35-105); Anion Gap 12.6 (5-19); Aspartate Amino Transferase 11 U/L (0-32); Blood Urea Nitrogen 14 mg/dL (8-23); Calcium 9.1 mg/dL (8.5-10.5); Carbon Dioxide 27 mmol/L (22-29); Chloride 105 mmol/L (98-107); Globulin 2.8 g/dL (1.3-4.6); Glucose 145 mg/dL (65-115); Osmolality Calculated 293 mOsm/kg (285-295); Potassium 4.6 mmol/L (3.5-5.1); Sodium 140 mmol/L (136-145); Total Bilirubin 0.5 mg/dL (0.15-1.2); Total Protein 6.8 g/dL (6.6-8.7)
== END 2023-09-29 23:59 | disposition home or self-care (01) ==
PROVIDERS: Internal Medicine; PCP Nurse Practitioner; Visit Provider Radiology Radiation Oncology
DX: C34.12 Malignant neoplasm of upper lobe, left bronchus or lung (principal); F17.290 Nicotine dependence, other tobacco product, uncomplicated; Z92.3 Personal history of irradiation
CPT/HCPCS: 36415; 80053; 85025; 99213

== ENCOUNTER 2023-10-29 09:00 | Oncology outpatient (recurring) (ONCR) | payer MEDICARE, SELFPAY ==
--- NOTE | 2023-09-30 09:15 | CTR_ITS ---
PROCEDURE INFORMATION: Exam: CT Chest With Contrast; Diagnostic Exam date and time: 09/30/2023 9:40 AM Age: 73 years old Clinical indication: Condition or disease; Lung condition and disease; Cancer of the lung; Left; Unspecified; Primary cancer: Primary squamous cell carcinoma of bronchus of [place] TECHNIQUE: Imaging protocol: Diagnostic computed tomography of the chest with contrast. Radiation optimization: All CT scans at this facility use at least one of these dose optimization techniques: automated exposure control; mA and/or kV adjustment per patient size (includes targeted exams where dose is matched to clinical indication); or iterative reconstruction. Contrast material: OMNI 350; Contrast volume: 100 ml; Contrast route: INTRAVENOUS (IV); COMPARISON: PT PET skull to thigh INIT [id number] 07/02/2023 9:39 AM RADIATION DOSE METRICS: Total DLP (mGy-cm): 546.28 FINDINGS: Lungs: There is a rounded, lobulated 3 cm mass involving the left upper lobe. The mass demonstrates spiculated borders. No other lung mass or infiltrate noted. Pleural spaces: Unremarkable. No pneumothorax. No pleural effusion. Heart: Unremarkable. No cardiomegaly. No pericardial effusion. Lymph nodes: Unremarkable. No enlarged lymph nodes. Vasculature: Unremarkable. No aortic aneurysm. Bones/joints: Unremarkable. No acute fracture. Soft tissues: Unremarkable. CT/CT chest w con* [id number] IMPRESSION: The left upper lobe mass has decreased significantly in size over the past 3 months
[2023-09-30] MEDS: iohexol 350 mg/mL 500 mL Btl (per mL) IV (09:46)
--- NOTE | 2023-10-02 10:20 | ONCRAD EPV_ITS ---
Radiation Oncology Established Patient Visit Patient: Karely Virgen [id number] : 1950 Age: 73 Sex: Female> Dictated by: Dr. Purvi Moore Date of Service: 10/02/2023 Referring Physician(s) : Herson Frost M.D. Diagnosis: C34.12 - Malignant neoplasm of upper lobe, left bronchus or lung, Diagnosed 06/10/2023 (Active) Radiotherapy to Date: Course: DOUGLAS SBRT 2023, Treatment Site: DOUGLAS SBRT 2023, Ref. ID: [id number] Energy: 6X, Dose/Fx (cGy): 1,200, #Fx: 4 / 4, Dose Correction (cGy): 0, Total Dose Delivered (cGy): 4,800, Start Date: 07/22/2023, End Date: 07/25/2023, Elapsed Days: 3 Patient returns today for her first check after having completed SBRT at the end of June for a right upper lobe lesion. She is in good spirits. She has no issues today she has a good appetite. She denies any new aches or pains. Her respiratory status is very stable. Her CT scan showed that the mass has significantly decreased in size from prior scans. Current History: Current Medications: Allergies: Current Complaints / Review of Systems: . Vital Signs: Performed on 10/02/2023 8:56 AM BMI - 34.77 kg/m2 (high), Height - 67 in, Weight - 222 lbs, Temperature - 98 f, Pulse - 78 /min, Respiration - 18 /min, O2 Sat - 97 %, Pain - 0, Fatigue - 2 and BP - 145/ 78 mm(hg)(high/). Physical Exam: General: Alert and oriented x 3. No acute distress. HEENT normocephalic atraumatic. Pupils are equal, sclera clear, extraocular muscles intact LUNGS: Respiratory rate is regular nonlabored Performance Status: 100 Lab: None pending. Pathology: Primary, c34.12 - malignant neoplasm of upper lobe, left bronchus or lung, Diagnosed 06/10/2023 (active) . Imaging: See HPI Impression: Non-small cell carcinoma of the lung status post SBRT Plan: At this point we talked about additional follow-up and how since it has not completely gone away we should proceed with a PET scan in a few weeks. That way we will know if there is any activity left in the mass or if it is just necrotic tissue. I reviewed with her then subsequently we would proceed with additional scans down the line on a regular basis. She is planning to go back to [place] in June to [facility] while her daughter and her go on a cruise. Will otherwise get her set up to have her PET scan and then follow-up after Signed by: 10/02/2023 10:18:56 AM <<Signature on File>> Time spent with patient: CPT Code: CPT Code:
--- NOTE | 2023-10-29 09:26 | PETR_ITS ---
PROCEDURE INFORMATION: Exam: PET/CT Skull Base to Mid-thigh Exam date and time: 10/29/2023 9:23 AM Age: 73 years old Clinical indication: Condition or disease; Primary cancer: Malignant neoplasm of unspecified part of unspecified bronchus or lung; Additional info: S/P sbrt. Previously provided history of endometrial cancer. LABS AND CLINICAL REPORTS: Glucose: 131 mg/dl Treatment strategy for malignancy (PET staging): Restaging (PS) TECHNIQUE: Imaging protocol: Following at least four-hour fasting and following the injection of radiopharmaceutical, low dose CT images were obtained. Then, PET images were obtained. Attenuation corrected images were constructed using the CT scan. Fused images of PET and CT were reviewed. The standardized uptake values (SUV) reported below are maximum values within a region of interest, expressed in gm/ml. Exam includes orbital meatal line to mid-thigh. Radiopharmaceutical: 11.7 mCi F-18 FDG (Fluorodeoxyglucose), IV. Time of imaging post radiopharmaceutical administration: 1 hour Injection site: Right antecubital COMPARISON: CT chest 09/30/2023, CT abdomen and pelvis 07/03/2023, PT PET skull to thigh INIT [id number] 07/02/2023 9:39 AM, PET-CT 03/05/2023 FINDINGS: Brain: Visualized brain has normal physiologic uptake. Pharynx: No abnormal uptake. Larynx: No abnormal uptake. Thyroid: Diffusely elevated uptake in the enlarged thyroid gland is noted, SUV max 5.9 (previously 5.0 on series 12, image 51. Lungs, pleura and trachea: A solid spiculated left upper lobe 1.6 x 3.1 cm (previously 4.1 x 3.2 cm as remeasured on the prior PET-CT) mass on image 68 is noted, SUV max 2.2 (previously 11.7). Heart: Normal physiologic uptake. Mediastinal space: No abnormal uptake. Liver: No abnormal uptake. Gallbladder and biliary ducts: No abnormal uptake. Cholecystectomy clips are present. Pancreas: No abnormal uptake. Spleen: No abnormal uptake. Adrenal glands: No abnormal uptake. Kidneys and ureters: Normal physiologic uptake. A similar low-density rounded non radiotracer avid structure in the superior pole of the right kidney measuring 2.3 cm is present, likely related to a benign cyst. This structure was compatible with a simple benign cyst on the 07/03/2023 CT. Stomach and bowel: A focus of physiologic appearing uptake is noted in the sigmoid colon on image 204, without evidence of wall thickening or correlating lesion on the CT images. Distal rectal uptake demonstrates an SUV max 4.9 (previously 4.4) on image 227, without definite mass or wall thickening on the CT images. Assessment of the rectum is limited by incomplete distension. Vasculature: No abnormal uptake. Diffuse atherosclerotic changes are present. Lymph nodes: No abnormal uptake. No lymphadenopathy in the head, neck, chest, abdomen, pelvis, and extremities. Skeleton: No abnormal uptake in the visualized axial and appendicular skeleton. Degenerative changes in the spine are present. No acute fracture. Soft tissues: No abnormal uptake in the visualized head, neck, chest, abdomen, pelvis, and extremities. Hernia repair coils in the region of the right rectus abdominis muscle are present. Extending from the inferior pelvis and in the proximal right thigh, a fat containing mass which involves the right gluteus minimus and gluteus minimus muscles is identified measuring 12.0 x 10.0 cm in the axial plane on series 3, image 211, by 16.8 cm superior to inferior without significantly elevated uptake. It is unchanged in size since at least 03/05/2023. METRICS: Mediastinal blood pool: SUV max 3.0, SUV mean 2.3 PET/PET skull to thigh SUBS [id number] IMPRESSION: 1. There has been an interval decrease in size of the left upper lobe mass since the prior PET-CT with interval decrease in uptake (SUV max 2.2, previously 11.7) consistent with a response to therapy. 2. Persistent and slightly increased abnormal uptake in the enlarged thyroid gland. The diffuse degree of uptake is suggestive of a benign etiology such as thyroiditis rather than malignancy. 3. Elevated uptake in the region of the distal rectum is noted, likely inflammatory in nature. A malignant etiology is less likely. 4. A non radiotracer avid morphologically similar fat containing mass with involvement of the right gluteus minimus and gluteus medius muscles is noted in the right pelvis and proximal thigh. Although this mass does not demonstrate elevated uptake, assessment of fat containing masses can be limited by PET-CT. It may represent a lipoma, however liposarcoma cannot be entirely excluded from this examination. MRI with and without contrast and/or percutaneous biopsy may be useful for further characterization. 5. Additional nonurgent findings as detailed above.
--- NOTE | 2023-10-31 08:55 | ONCRAD EPV_ITS ---
Radiation Oncology Established Patient Visit Patient: Param Cali [id number] : 1950 Age: 73 Sex: Female Dictated by: Dr. Purvi Moore Date of Service: 10/31/2023 Referring Physician(s) : Herson Frost M.D. Diagnosis: C34.12 - Malignant neoplasm of upper lobe, left bronchus or lung, Diagnosed 06/10/2023 (Active) Symptoms: Patient is doing well. Her only complaints today have to do with the arthritic pain she is actually having in her jaw. She is not having any respiratory symptoms. She is here today to go over the results of her PET scan and to set up a follow-up schedule with serial scans. Radiotherapy to Date: Course: DOUGLAS SBRT 2023, Treatment Site: DOUGLAS SBRT 2023, Ref. ID: [id number], Energy: 6X, Dose/Fx (cGy): 1,200, #Fx: 4 / 4, Dose Correction (cGy): 0, Total Dose Delivered (cGy): 4,800, Start Date: 07/22/2023, End Date: 07/25/2023, Elapsed Days: 3 Current History: Current Medications: Allergies: Current Complaints / Review of Systems: . Vital Signs: Performed on 10/31/2023 8:19 AM BMI - 33.893 kg/m2 (high), Height - 67 in, Weight - 216.4 lbs, Temperature - 97.5 f, Pulse - 82 /min, Respiration - 18 /min, O2 Sat - 96 %, Pain - 0, Fatigue - 0 and BP - 157/ 72 mm(hg)(high/). Physical Exam: General: Alert and oriented x 3. No acute distress. HEENT normocephalic atraumatic. Pupils are equal round reactive to light. Extraocular muscles intact. Sclera clear. LUNGS: Respiratory rate is regular nonlabored. HEART: Regular rate and rhythm . ABDOMEN: Mildly protuberant and android pattern EXTREMITIES: Without clubbing cyanosis or edema NEUROLOGIC: Alert and orient x 3. Gait and speech within normal limits. Performance Status: 100 Lab: None pending. Pathology: Primary, c34.12 - malignant neoplasm of upper lobe, left bronchus or lung, Diagnosed 06/10/2023 (active) . Imaging: See HPI Impression: Non-small cell carcinoma lung status post SBRT Plan: I reviewed the results of her PET scan which showed that the mass had decreased in size as well as the SUV had decreased from 11.7-2.2. We talked about a follow-up schedule with CT scans. I recommended that we proceed with the next scan in 3 months and then perhaps we can move the subsequent scans to 6 months. She was in agreement with this. I have recommended that we schedule that scan in 3 months and then we can call her with those results. At that point we will set up the next scan for 6 months. 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 Signed by: 10/31/2023 8:54:16 AM <<Signature on File>> Time spent with patient: 15 CPT Code: CPT Code:
== END 2023-10-30 23:59 | disposition home or self-care (01) ==
PROVIDERS: PCP Nurse Practitioner; Visit Provider Radiology Radiation Oncology
DX: C34.90 Malignant neoplasm of unspecified part of unspecified bronchus or lung (principal); R19.09 Other intra-abdominal and pelvic swelling, mass and lump; E04.9 Nontoxic goiter, unspecified
CPT/HCPCS: 71260; 78815; 99024; A9552; Q9967

== ENCOUNTER 2023-10-31 08:11 | Oncology outpatient (recurring) (ONCR) | payer MEDICARE, SELFPAY | END 2023-12-05 09:09 | disposition home or self-care (01) | PROVIDERS: PCP Nurse Practitioner; Visit Provider Radiology Radiation Oncology | DX: C34.12 Malignant neoplasm of upper lobe, left bronchus or lung; Z92.3 Personal history of irradiation | CPT/HCPCS: 99213 ==

== ENCOUNTER → 2023-12-19 09:56 | Outpatient (BNVA) | payer MEDICARE, SELFPAY | PROVIDERS: PCP Nurse Practitioner; Visit Provider Nurse Practitioner | DX: E11.9 Type 2 diabetes mellitus without complications (principal) | CPT/HCPCS: 80053; 80061; 81000; 83036 ==

== ENCOUNTER 2024-02-04 08:50 | Oncology outpatient (recurring) (ONCR) | payer MEDICARE, SELFPAY ==
--- NOTE | 2024-01-31 08:00 | CTR_ITS ---
PROCEDURE INFORMATION: Exam: CT Chest With Contrast; Diagnostic Exam date and time: 01/31/2024 8:14 AM Age: 73 years old Clinical indication: Condition or disease; Lung condition and disease; Cancer of the lung; Bilateral; Unspecified; Patient HX: Lung cancer, S/P radiation treatments; Additional info: Lung cancer sp sbrt TECHNIQUE: Imaging protocol: Diagnostic computed tomography of the chest with contrast. Radiation optimization: All CT scans at this facility use at least one of these dose optimization techniques: automated exposure control; mA and/or kV adjustment per patient size (includes targeted exams where dose is matched to clinical indication); or iterative reconstruction. Contrast material: OMNI 350; Contrast volume: 100 ml; Contrast route: INTRAVENOUS (IV); COMPARISON: PT PET skull to thigh SUBS [id number] 10/29/2023 9:23 AM RADIATION DOSE METRICS: Total DLP (mGy-cm): 577.65 FINDINGS: Lungs: The left upper lobe mass is smaller than before, currently 1.7 x 1.5 cm previously 2.8 x 1.9 cm. Visible central lymph nodes are not pathologically enlarged. Pleural spaces: Unremarkable. No pneumothorax. No pleural effusion. Heart: Unremarkable. No cardiomegaly. No pericardial effusion. Lymph nodes: Visible central lymph nodes are not pathologically enlarged. Vasculature: Unremarkable. No aortic aneurysm. Spleen: 15 cm splenomegaly. Bones/joints: Unremarkable. No acute fracture. Soft tissues: Unremarkable. CT/CT chest w con* [id number] IMPRESSION: The left upper lobe mass is smaller than before.
[2024-01-31 08:16] LABS: Blood Urea Nitrogen 15 mg/dL (8-23)
--- NOTE | 2024-02-04 11:00 | ONCRAD EPV_ITS ---
Radiation Oncology Established Patient Visit Patient: Param Cali [id number] : 1950> Age: 73> Sex: Female> Dictated by: Dr. Ankush Morin Date of Service: 02/04/2024 Referring Physician(s) : Herson Frost M.D. Diagnosis: C34.12 - Malignant neoplasm of upper lobe, left bronchus or lung, Diagnosed 06/10/2023 (Active) Radiotherapy to Date: Course: DOUGLAS SBRT 2023, Treatment Site: DOUGLAS SBRT 2023, Ref. ID: [id number], Energy: 6X, Dose/Fx (cGy): 1,200, #Fx: 4 / 4, Dose Correction (cGy): 0, Total Dose Delivered (cGy): 4,800, Start Date: 07/22/2023, End Date: 07/25/2023, Elapsed Days: 3 Current History: She now rturns six months post [address] I squamous cell carcinoma of the DOUGLAS. Breathing , energy level appetite and weight are all stable. She continues to smoke 5 to 10 cigs a day. She notes that her anxiety and depression limit her use of smoking cessation medications. She has had right TMJ ???cracking??? and pain x 6 weeks. Advised to see a Dentist but not interested in paying for an evaluation. She plans to transienty move back to [place] for [address] chest 01/31/2024 vs post treatment PET/CT 10/29/2023 showed further reduction of her tumor from 2.8 x 1.9 to 1.7 x 1.5 cm with no other changes seen. I reviewed these images with the patient as well. Vital Signs: Performed on 02/04/2024 9:00 AM BMI - 34.238 kg/m2 (high), Height - 67 in, Weight - 218.6 lbs, Temperature - 97.3 f, Pulse - 78 /min, Respiration - 18 /min, O2 Sat - 98 %, Pain - 0, Fatigue - 0 and BP - 149/ 76 mm(hg)(high/). Physical Exam: General: Alert and oriented x 3. No acute distress. No palpable supraclavicular adenopathy. No pedal edema. Performance Status: ECOG 0 Lab: None pending. Pathology: Primary, c34.12 - malignant neoplasm of upper lobe, left bronchus or lung, Diagnosed 06/10/2023 (active) . 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 Doing well with ongoing reduction fo tumor size and no disease progression seen elsewhere. We will see her in FU in [address] Discussed the critical need for complete smoking cessation. Signed by: 02/04/2024 10:59:12 AM <<Signature on File>> Time spent with patient: CPT Code: CPT Code:
== END 2024-02-29 23:59 | disposition home or self-care (01) ==
PROVIDERS: Radiology Radiation Oncology; PCP Nurse Practitioner; Visit Provider Radiology Radiation Oncology
DX: C34.12 Malignant neoplasm of upper lobe, left bronchus or lung (principal); Z92.3 Personal history of irradiation; F17.210 Nicotine dependence, cigarettes, uncomplicated; F41.9 Anxiety disorder, unspecified; F32.A Depression, unspecified
CPT/HCPCS: 71260; 82565; 84520; 99213; Q9967

== ENCOUNTER → 2024-05-28 08:54 | Outpatient (BNVA) | payer MEDICARE, SELFPAY | PROVIDERS: PCP Nurse Practitioner; Visit Provider Nurse Practitioner | DX: E11.9 Type 2 diabetes mellitus without complications (principal) | CPT/HCPCS: 80053; 80061; 82607; 83036 ==

== ENCOUNTER 2024-09-01 13:12 | Oncology outpatient (recurring) (ONCR) | payer MEDICARE, SELFPAY ==
--- NOTE | 2024-09-01 13:00 | CTR_ITS ---
PROCEDURE INFORMATION: Exam: CT Chest With Contrast; Diagnostic Exam date and time: 09/01/2024 1:49 PM Age: 74 years old Clinical indication: Prior radiation therapy - lung, . Condition or disease; Lung condition and disease; Cancer of the lung; Left; Lobe, upper; Primary cancer: Endometrial; Follow-up oncological assessment; Follow up lung cancer; Additional info: Lung CA TECHNIQUE: Imaging protocol: Diagnostic computed tomography of the chest with contrast. Radiation optimization: All CT scans at this facility use at least one of these dose optimization techniques: automated exposure control; mA and/or kV adjustment per patient size (includes targeted exams where dose is matched to clinical indication); or iterative reconstruction. Contrast material: OMNIPAQUE 350; Contrast volume: 100 ml; Contrast route: INTRAVENOUS (IV); COMPARISON: CT chest w con* [id number] 01/31/2024 8:14 AM RADIATION DOSE METRICS: Total DLP (mGy-cm): 460.11 FINDINGS: Lungs: A small irregularly shaped masslike density in the left upper lobe has decreased in size, previously measuring 1.8 x 1.4 cm and now the solid portion measures 0.9 x 0.6 cm. There are still a few patchy and hazy opacities in the left upper lobe. No new pulmonary mass. There are a few new patchy and hazy airspace opacities in the right lower lobe. Pleural spaces: No pleural effusion. Heart: Heart size is normal. Coronary arteries: Moderate calcified plaque in the coronary arteries. Lymph nodes: Unremarkable. No enlarged lymph nodes. Vasculature: The thoracic aorta remains moderately atherosclerotic. Kidneys: Unchanged 2.5 cm simple right renal cyst. Bones/joints: Unchanged mild 10% superior endplate fracture of T7 and slight deformity of the inferior endplate of T6. Soft tissues: Unremarkable. CT/CT chest w con* [id number] IMPRESSION: 1. Decreased left upper lobe dense opacity. Resolving mass versus resolving pneumonia. 2. There are new hazy opacities in the right lower lobe, likely inflammatory. 3. No significant adenopathy. 4. Incidental findings as described
[2024-09-01 13:46] LABS: Blood Urea Nitrogen 15 mg/dL (8-23)
[2024-09-01] MEDS: iohexol 350 mg/mL 500 mL Btl (per mL) IV (13:49)
== END 2024-09-28 23:59 | disposition home or self-care (01) ==
PROVIDERS: PCP Nurse Practitioner; Visit Provider Radiology Radiation Oncology
DX: C34.90 Malignant neoplasm of unspecified part of unspecified bronchus or lung (principal); R91.8 Other nonspecific abnormal finding of lung field; I25.10 Atherosclerotic heart disease of native coronary artery without angina pectoris; I70.0 Atherosclerosis of aorta; N28.1 Cyst of kidney, acquired; S22.069D Unspecified fracture of T7-T8 vertebra, subsequent encounter for fracture with routine healing; X58.XXXD Exposure to other specified factors, subsequent encounter
CPT/HCPCS: 71260; 82565; 84520

== ENCOUNTER 2024-09-08 13:20 | Outpatient (CLI) | payer MEDICARE, SELFPAY ==
--- NOTE | 2024-09-08 13:20 | MM_ITS ---
WS: [id number] BILATERAL 3D TOMOSYNTHESIS DIGITAL SCREENING MAMMOGRAPHY WITH CAD CLINICAL INFORMATION: SCREENING HISTORY: Screening mammogram. No current complaints. COMPARISON: 2023 TECHNIQUE: Bilateral CC and MLO views. FINDINGS: Scattered fibroglandular densities bilaterally. No suspicious focal mass, asymmetry, calcifications, or architectural distortion. No evidence of malignancy. Incidental punctate calcifications. MM/MM [facility] tomosynthesis [id number] IMPRESSION: DENSITY: There are scattered areas of fibroglandular density. BI-RADS: 2 - Benign. FOLLOW UP: 1 Year Follow-up Recommend return to annual screening mammography.
== END 2024-09-08 13:21 | disposition home or self-care (01) ==
PROVIDERS: PCP Nurse Practitioner; Visit Provider Nurse Practitioner
DX: Z12.31 Encounter for screening mammogram for malignant neoplasm of breast (principal); R92.323 Mammographic fibroglandular density, bilateral breasts; R92.1 Mammographic calcification found on diagnostic imaging of breast
CPT/HCPCS: 77063; 77067

== ENCOUNTER 2024-12-07 09:40 | Oncology outpatient (recurring) (ONCR) | payer MEDICARE, SELFPAY ==
--- NOTE | 2024-12-03 12:30 | CT_ITS ---
WS: [id number] CT chest wo con [id number] HISTORY: C34.90 - Malignant neoplasm of unspecified part of unspec... TECHNIQUE: Axial imaging performed through the thorax. Coronal and sagittal reformats are submitted. All CT scans at [facility] use at least one of these dose optimization techniques: automated exposure control; mA and/or kV adjustment per patient size (includes targeted exams where dose is matched to clinical indication); or iterative reconstruction. CONTRAST: None DLP: 491.35 mGy.cm COMPARISON: 09/01/2024, PET/CT 10/29/2023 Lungs and central airway: Hyperinflated lungs. Chronic emphysema. Increased linear opacification in the LEFT upper lobe corresponds to the post radiation treatment site of the previously described neoplasm. There is also mild pleural thickening in the LEFT upper lobe. There is mild bronchiectasis LEFT upper lobe at the site of the treatment. No new mass or pulmonary nodule. Pleura: No pleural effusions. Heart and pericardium: Normal size heart with no pericardial effusion. Mediastinum and david: No adenopathy on this unenhanced exam identified. Vessels: Moderate atherosclerosis aorta. Pulmonary artery is dilated to 3.6 cm. Chest wall and lower neck: Mildly enlarged LEFT thyroid lobe extends substernal. Upper abdomen: No adrenal mass. Upper pole RIGHT renal cyst 2.0 cm is unchanged. Prior cholecystectomy. Osseous structures: Mild increase in thoracic kyphosis. No destructive bone lesions. CT/CT chest wo con [id number] IMPRESSION: 1. Posttreatment changes LEFT upper lobe. No residual mass identified. Post ra diation treatment fibrosis and bronchiectasis and pleural thickening are stable . No new or additional mass. 2. No mediastinal or hilar adenopathy. 3. Prior cholecystectomy.
--- NOTE | 2024-12-07 11:44 | ONCRAD EPV_ITS ---
Radiation Oncology Established Patient Visit Patient: Karely Virgen [id number] : 1950 Age: 74 Sex: Female Dictated by: Dr. Ankush Morin Date of Service: 12/07/2024 Referring Physician(s) : Herson Frost M.D. Diagnosis: C34.12 - Malignant neoplasm of upper lobe, left bronchus or lung, Diagnosed 06/10/2023 (Active) Radiotherapy to Date: Course: DOUGLAS SBRT 2023, Treatment Site: DOUGLAS SBRT 2023, Ref. ID: [id number], Energy: 6X, Dose/Fx (cGy): 1,200, #Fx: 4 / 4, Dose Correction (cGy): 0, Total Dose Delivered (cGy): 4,800, Start Date: 07/22/2023, End Date: 07/25/2023, Elapsed Days: 3 Current History: Still smoking when anxious from 5 to 20 cigarettes a day. She really wants to quit smoking and will see her PMD for this issue. Some chest pain 5 on 10 scale with cough. She was house bound during the heat of the summer. Now planning to move to [place] after the end of the school year. Eating ok and gained some weight. CT chest here 12/03/2024 without contrast revealed post treatment patchy fibrotic DOUGLAS. No residual masses, adenopathy or new nodules. Current Medications: albuterol sulfate 90 mcg/actuation 2 puffs inhalation Q6H PRN amlodipine 10 mg PO DAILY aspirin (Adult Aspirin Regimen) 81 mg PO DAILY atorvastatin 40 mg PO DAILY fluticasone propion-salmeterol 500-50 mcg/dose (Wixela Inhub) 1 inh inhalation BID furosemide 20 mg PO DAILY PRN ipratropium-albuterol 0.5 mg-3 mg(2.5 mg base)/3 mL 3 mL inhalation Q4H PRN losartan 100 mg PO DAILY metformin ER 750 mg PO DAILY montelukast 10 mg PO DAILY omeprazole 40 mg PO DAILY paroxetine HCl 40 mg PO DAILY tiotropium bromide (Spiriva with HandiHaler) 1 cap inhalation DAILY trazodone 50 mg PO DAILY Allergies: No Known Allergies Allergy (Verified 05/28/24 08:22) Current Complaints / Review of Systems: . Vital Signs: Performed on 12/07/2024 10:05 AM BMI - 31.92 kg/m2 (high), Height - 67 in, Weight - 203.8 lbs, Temperature - 97.6 f, Pulse - 81 /min, Respiration - 18 /min, O2 Sat - 94 % (low), Pain - 5, Fatigue - 0 and BP - 135/ 61 mm(hg)(/low). Physical Exam: General: Alert and oriented x 3. No acute distress. No cervical or supraclav adenopathy. No pedal edema Performance Status: ECOG PS 0 Lab: None pending. Pathology: Primary, c34.12 - malignant neoplasm of upper lobe, left bronchus or lung, Diagnosed 06/10/2023 (active) . Imaging: See HPI Impression: ELIZABETH. Post treatment CT consistent with radiation changes alone. Begged her again to quit smoking. She does want to quit. She is moving to [place] after the school year ends. Recommend follow up with chest CT in 6 months after her move to [place]. Signed by: 12/07/2024 11:43:12 AM <<Signature on File>> Time spent with patient: CPT Code: CPT Code:
== END 2024-12-29 23:59 | disposition home or self-care (01) ==
PROVIDERS: PCP Nurse Practitioner; Visit Provider Radiology Radiation Oncology
DX: C34.12 Malignant neoplasm of upper lobe, left bronchus or lung (principal); F17.210 Nicotine dependence, cigarettes, uncomplicated
CPT/HCPCS: 71250; 99213